=== PATIENT | male | born 1970 | race Caucasian/White ===

== ENCOUNTER 2018-08-14 15:45 | Emergency (ER) | payer BC, OTHER, SELFPAY ==
[2018-08-14 15:47] VITALS: BP 139/90; PULSE 91; RESP 18; TEMP 36.4; O2SAT 100; BMI 26.6
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
== END 2018-08-14 16:31 | disposition home or self-care (01) ==
LOC: ED 16:23
PROVIDERS: Emergency Provider Emergency Medicine
DX: M54.16 Radiculopathy, lumbar region (principal); S39.012A Strain of muscle, fascia and tendon of lower back, initial encounter; X50.0XXA Overexertion from strenuous movement or load, initial encounter; Y93.89 Activity, other specified; Y92.89 Other specified places as the place of occurrence of the external cause; Y99.8 Other external cause status
CPT/HCPCS: 99282